=== PATIENT | male | born 1960 | race Caucasian/White ===

== ENCOUNTER → 2018-06-09 | Outpatient (REF) | payer BC ==
[~2018-06-09] MED LIST: CEP500 PO; CLIN-1 PO; LOR5 PO; PRE20 PO; [UNRECOGNIZED DRUG - CODE] IV; [UNRECOGNIZED DRUG - CODE] IV
== END ==
LOC: ZZPBJ 12:37
PROVIDERS: ATTEND Orthopaedic Surgery Hand Surgery
DX: M70.22 Olecranon bursitis, left elbow (principal)
CPT/HCPCS: 88305; 88312

== ENCOUNTER → 2018-11-03 | Outpatient (CLI) | payer BC, OTHER ==
--- NOTE | 2018-11-03 17:57 | RADIOLOGY IMAGING REPORT ---
FACILITY: [facility] - [place] PATIENT NAME: Branden Westbrook : 1960 MR: [id number] V: [id number] EXAM DATE: [id number] ORDERING PHYSICIAN: GIANCARLO MARLEY TECHNOLOGIST: Location: [facility] [place] Patient: Branden Westbrook : 1960 Visit/Account:[id number] Date of Sevice: 11/03/2018 CAROTID HISTORY: Hypercholesterolemia COMPARISON: None. FINDINGS: Grayscale, duplex and color Doppler interrogation of the extracranial carotid and vertebral arteries was performed bilateral. On the right, peak systolic velocities within the common and internal carotid arteries are 92 and 90 cm/sec respectively. No significant plaque was identified on the right. Antegrade flow within the c ommon, internal and external carotid arteries as well as vertebral artery. ICA/CCA ratio 1. On the left, peak systolic velocities within the common and internal carotid arteries are 114 and 86 cm/sec respectively. No significant plaque was identified on the left. Antegrade flow within the co mmon, internal and external carotid arteries as well as vertebral artery. ICA/CCA ratio 1.1. IMPRESSION: No hemodynamically significant lesions identified Velocity criteria are extrapolated from diameter data as defined by the Society of Radiologists in Ul trasound Consensus Conference Radiology 2003; 229;340-346 Report Dictated By: Aleyda Correa MD at 11/03/2018 5:52 PM Report E-Signed By: Aleyda Correa MD at 11/03/2018 5:53 PM WSN:[email or web address]
== END ==
LOC: US 00:09
PROVIDERS: ATTEND Internal Medicine Cardiovascular Disease
DX: Z13.6 Encounter for screening for cardiovascular disorders (principal); E78.00 Pure hypercholesterolemia, unspecified; I65.29 Occlusion and stenosis of unspecified carotid artery
CPT/HCPCS: 93880